=== PATIENT | male | born 1965 | race Hispanic/Latino ===

== ENCOUNTER 2024-03-23 01:55 | Inpatient (IN) | payer OTHER ==
[2024-03-23] VITALS (8 sets, daily range): BP systolic 155–175; BP diastolic 90–98; PULSE 61–78; RESP 16–20; TEMP 97.5–98.1; O2SAT 98–100
[~2024-03-23] VITALS: Ht 152.4 cm; Wt 72.6 kg
[2024-03-23] MEDS: ONDANSETRON HCL INJ 2MG/ML 2ML 2 MG/ML VIAL IV STA (02:14)
[2024-03-23] MEDS: SODIUM CHLORIDE 0.9% 1000ML 1,000 ML IV STA (02:14)
[2024-03-23] MEDS: KETOROLAC TROMETHAMINE 30 MG/ML VIAL IV STA (02:30)
[2024-03-23 02:35] LABS: BASOPHILS # (AUTO) 0.1 (0.0-0.1); BASOPHILS % 0.8 % (0.0-1.0); EOSINOPHILS # (AUTO) 0.3 (0.0-0.4); EOSINOPHILS % 4.9 % (0.0-6.0); HEMATOCRIT 43.2 % (38.2-49.6); HEMOGLOBIN 14.8 g/dL (14.0-18.0); LYMPHOCYTES % 31.3 % (18.0-39.1); MEAN CORPUSCULAR HGB CONC 34.3 g/dL (31-35); MEAN CORPUSCULAR VOLUME 96.4 fL (81-99); MONOCYTES # (AUTO) 0.7 (0.2-0.8); MONOCYTES % 11.1 % (4.4-11.3); NEUTROPHILS # (AUTO) 3.2 (2.1-6.9); NEUTROPHILS % 50.9 % (38.7-80.0); PLATELET COUNT 200 x10e3/uL (140-360); RED BLOOD COUNT 4.48 x10e6/uL (4.3-5.7); RED CELL DISTRIBUTION WIDTH 11.6 % (11.7-14.4); WHITE BLOOD COUNT 6.29 x10e3/uL (4.8-10.8)
[2024-03-23 02:50] LABS: ALBUMIN 3.6 g/dL (3.5-5.0); ALBUMIN/GLOBULIN RATIO 0.9 (0.8-2.0); ANION GAP 15.9 mmol/L (8-16); BILIRUBIN,TOTAL 0.5 mg/dL (0.2-1.2); CALCIUM 8.9 mg/dL (8.4-10.2); CREATININE, SERUM 1.72 mg/dL (0.72-1.25); POTASSIUM 3.9 mmol/L (3.5-5.1); TOTAL PROTEIN 7.5 g/dL (6.5-8.1)
[2024-03-23 03:12] LABS: BILIRUBIN,URINE NEGATIVE (NEGATIVE); CLARITY,URINE CLEAR (CLEAR); COLOR,URINE YELLOW (YELLOW); GLUCOSE, URINE NEGATIVE (NEGATIVE); KETONES,URINE NEGATIVE (NEGATIVE); LEUKOCYTE ESTERASE ,URINE NEGATIVE (NEGATIVE); NITRITE,URINE NEGATIVE (NEGATIVE); PH,URINE 5.5 (5 - 7); PROTEIN,URINE DIPSTICK NEGATIVE (NEGATIVE); URINE UROBILINOGEN 0.2 mg/dL (0.2 - 1)
[2024-03-23 03:16] LABS: RBC,URINE 0-5 /HPF (0-5); WBC,URINE (MAN) 0-5 /HPF (0-5)
[2024-03-23 03:17] LABS: BACTERIA,URINE FEW /HPF; EPITHELIAL CELLS,URINE RARE /LPF
[2024-03-23] MEDS ORDERED: FLOMAX0.4 MG PO (03:54)
[2024-03-23] MEDS ORDERED: ONDANSETRON ODT4 MG PO (03:54)
[2024-03-23] MEDS ORDERED: KETOROLAC TROME10 MG PO (03:54)
[2024-03-23] MEDS ORDERED: ONDANSETRON HCL INJ 2MG/ML 2ML 2 MG/ML VIAL IV PRN (04:15)
[2024-03-23] MEDS: SODIUM CHLORIDE 0.9% 1000ML 1,000 ML IV SCH (04:34)
[2024-03-23] MEDS: Morphine 4mg INJECTION 4 MG/ML INJ IV ONE (07:45)
[2024-03-23] MEDS: KETOROLAC TROMETHAMINE 30 MG/ML VIAL IV PRN (08:08)
[2024-03-23] MEDS ORDERED: LOSARTAN POTAS100 MG PO (10:03)
[2024-03-23 13:14] LABS: CHOL/HDL RATIO 4.3 (3.9-4.7); MAGNESIUM 2.4 MG/DL (1.3-2.1); PHOSPHORUS 4.2 MG/DL (2.3-4.7)
[2024-03-23] MEDS: LOSARTAN POTASSIUM 100 MG TAB PO SCH (13:21)
[2024-03-23 13:34] LABS: FREE T4 (FREE THYROXINE) 1.13 ng/dL (0.8-1.8); THYROID STIMULATING HORMONE 2.007 uIU/mL (0.350-4.940)
[2024-03-24] VITALS (9 sets, daily range): BP systolic 147–178; BP diastolic 80–96; PULSE 59–73; RESP 16–19; TEMP 97.3–98.7; O2SAT 99–100
[2024-03-24 06:00] LABS: BASOPHILS % 0.7 % (0.0-1.0); EOSINOPHILS # (AUTO) 0.3 (0.0-0.4); EOSINOPHILS % 4.7 % (0.0-6.0); HEMATOCRIT 39.6 % (38.2-49.6); HEMOGLOBIN 13.2 g/dL (14.0-18.0); LYMPHOCYTES # (AUTO) 1.6 (1.0-3.2); LYMPHOCYTES % 25.4 % (18.0-39.1); MEAN CORPUSCULAR HEMOGLOBIN 32.5 pg (28-32); MEAN CORPUSCULAR HGB CONC 33.3 g/dL (31-35); MEAN CORPUSCULAR VOLUME 97.5 fL (81-99); MONOCYTES # (AUTO) 0.7 (0.2-0.8); MONOCYTES % 11.9 % (4.4-11.3); NEUTROPHILS # (AUTO) 3.5 (2.1-6.9); NEUTROPHILS % 56.8 % (38.7-80.0); PLATELET COUNT 188 x10e3/uL (140-360); RED BLOOD COUNT 4.06 x10e6/uL (4.3-5.7); RED CELL DISTRIBUTION WIDTH 11.8 % (11.7-14.4); WHITE BLOOD COUNT 6.13 x10e3/uL (4.8-10.8)
[2024-03-24 06:15] LABS: ALBUMIN 3.2 g/dL (3.5-5.0); ALBUMIN/GLOBULIN RATIO 0.9 (0.8-2.0); ANION GAP 12.9 mmol/L (8-16); BILIRUBIN,TOTAL 0.7 mg/dL (0.2-1.2); CALCIUM 8.2 mg/dL (8.4-10.2); CREATININE, SERUM 1.74 mg/dL (0.72-1.25); POTASSIUM 4.9 mmol/L (3.5-5.1); TOTAL PROTEIN 6.6 g/dL (6.5-8.1)
[2024-03-25] VITALS (8 sets, daily range): BP systolic 152–176; BP diastolic 85–97; PULSE 59–108; RESP 17–18; TEMP 97.5–98.3; O2SAT 96–100
[2024-03-25] MEDS: HYDRALAZINE HCL 20 MG/ML VIAL IV PRN (10:42)
[2024-03-25] MEDS ORDERED: HYDRALAZINE HCL10 MG PO (21:08)
[2024-03-25] MEDS: HYDRALAZINE HCL 10 MG TAB PO SCH (21:18)
[2024-03-25] MEDS ORDERED: AMLODIPINE BESYL5 MG PO (22:17)
[2024-03-25] MEDS: AMLODIPINE BESYLATE 5 MG TAB PO ONE (22:32)
[2024-03-26] MEDS ORDERED: AMLODIPINE BESYLATE 5 MG TAB PO SCH (09:00)
== END 2024-03-25 23:40 | disposition home or self-care (01) | DRG 694 ==
LOC: ER 02:00 → ERHOLD 04:05 → MED/SURG3 08:20 → OBSVTOIN 03-24 10:43
PROVIDERS: ADMIT Internal Medicine; ATTEND Internal Medicine
DX: N20.1 Calculus of ureter (principal); N17.9 Acute kidney failure, unspecified; N13.6 Pyonephrosis; N30.91 Cystitis, unspecified with hematuria; N18.30 Chronic kidney disease, stage 3 unspecified; N23 Unspecified renal colic; I12.9 Hypertensive chronic kidney disease with stage 1 through stage 4 chronic kidney disease, or unspecified chronic kidney disease; E78.1 Pure hyperglyceridemia; K57.30 Diverticulosis of large intestine without perforation or abscess without bleeding; E66.9 Obesity, unspecified; Z68.31 Body mass index [BMI] 31.0-31.9, adult; F10.10 Alcohol abuse, uncomplicated
CPT/HCPCS: 36415; 74018; 74177; 80053; 80061; 80320; 81001; 83036; 83690; 83735; 84100; 84439; 84443; 85025; 99284; G0378; J0360; J1885; J2405; J7030